=== PATIENT | male | born 1980 | race Hispanic/Latino ===

== ENCOUNTER 2019-04-25 15:43 | Emergency (ER) | payer OTHER ==
--- NOTE | 2019-04-25 17:04 | XRay Report ---
LEFT WRIST 3 VIEWS 1606 INDICATION: box fell on the arm COMPARISON: None available. FINDINGS: No fractures or dislocations are seen. 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 Signer Name: Landry Rodriguez MD Signed: 04/25/2019 5:00 PM Workstation Name: [id number]
--- NOTE | 2019-04-25 19:59 | Emergency Department Report ---
HPI - General Chief Complaint: Extremity Injury, Lower Time Seen by Provider: 04/25/19 19:48 - HPI HPI: Room 6 The patient is a 39-year-old male presenting with chief complaint left wrist pain. The patient states approximately 2-to 3 days ago heavy box fell landing on his left wrist. Patient complains of pain in the left wrist especially with movement. Patient states he does not wish to receive any narcotic medication Location: [See above] Duration: [See above] Quality: [See above] Severity: [See above] Timing: [See above] Context: [See above] Modifying factors: [See above] Associated signs and symptoms: [see above] ED Past Medical Hx - Past Medical History Previous Medical History?: No - Surgical History Additional Surgical History: kidney - Family History Family history: no significant - Social History Smoking Status: Current Every Day Smoker (1/3 pack per day) - Medications Home Medications: Home Medications Medication Instructions Recorded Confirmed Last Taken Type Ibuprofen [Motrin 800 MG tab] 800 mg PO Q8HR PRN #20 tablet 04/25/19 Unknown Rx ED Review of Systems ROS: Stated complaint: LFT WRIST WORK INJURY/PAIN Other details as noted in HPI Musculoskeletal: myalgia Physical Exam - Physical Exam Vital Signs: Vital Signs 04/25/19 15:50 Temperature 97.9 F Pulse Rate 81 Respiratory 16 Rate Blood Pressure 150/98 O2 Sat by Pulse 98 Oximetry Physical Exam: GENERAL: The patient is well-developed well-nourished male sitting on stretcher not appearing to be in acute distress. [] HEENT: Normocephalic. Atraumatic. Extraocular motions are intact. Patient has moist mucous membranes. NECK: Trachea midline CHEST/LUNGS: There is no respiratory distress noted. HEART/CARDIOVASCULAR: Regular. There is no tachycardia. 2+ left radial pulse SKIN: There is no rash. There is no edema. There is no diaphoresis. NEURO: The patient is awake, alert, and oriented. The patient is cooperative. The patient has no focal neurologic deficits. The patient has normal speech. Normal sensation to light touch of the left hand MUSCULOSKELETAL: There is tenderness to palpation of the left anatomical snuffbox ED Course Vital Signs 04/25/19 15:50 Temperature 97.9 F Pulse Rate 81 Respiratory 16 Rate Blood Pressure 150/98 O2 Sat by Pulse 98 Oximetry ED Medical Decision Making - Radiology Data Radiology results: report reviewed (left wrist x-ray), image reviewed (left wrist x-ray) interpreted by me: Left wrist x-ray-no acute fracture [facility] [address] [place] [address] XRay Report Signed Patient: FAUSTO BOTELLO MR#: [id number] : 1980 Acct:[id number] Age/Sex: 39 / M ADM Date: 04/25/19 Loc: ED Attending Dr: Ordering Physician: ED MD HECTOR Date of Service: 04/25/19 Procedure(s): XR wrist 3+V LT Accession Number(s): [id number] cc: ED MD HECTOR Fluoro Time In Minutes: LEFT WRIST 3 VIEWS 1606 INDICATION: box fell on the arm COMPARISON: None available. FINDINGS: No fractures or dislocations are seen. 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 Signer Name: Landry Rodriguez MD Signed: 04/25/2019 5:00 PM Workstation Name: [id number] Transcribed By: GJ Dictated By: Landry Rodriguez MD Electronically Authenticated By: Landry Rodriguez MD Signed Date/Time: 04/25/19 1700 DD/ 1636 TD/TT: - Differential Diagnosis scaphoid fracture, wrist contusion, wrist radius fracture Critical care attestation.: If time is entered above; I have spent that time in minutes in the direct care of this critically ill patient, excluding procedure time. ED Disposition Clinical Impression: Left wrist injury Disposition: DC-01 TO HOME OR SELFCARE Is pt being admited?: No Does the pt Need Aspirin: No Condition: Stable Instructions: Scaphoid Fracture (ED) Additional Instructions: Return to the emergency department should you develop worsening symptoms, inability to tolerate food or liquids, high fever or any other concerns Prescriptions: Ibuprofen [Motrin 800 MG tab] 800 mg PO Q8HR PRN #20 tablet PRN Reason: Pain, Moderate (4-6) Referrals: SOFIA HEATH MD [Staff Physician] - 3-5 Days (Dr. Heath is an orthopedic surgeon. Please follow-up with him further evaluation) Time of Disposition: 19:59
[2019-04-25 20:44] VITALS: BP 141/91
== END 2019-04-25 20:25 | disposition home or self-care (01) ==
LOC: ED 15:43
DX: S69.92XA Unspecified injury of left wrist, hand and finger(s), initial encounter (principal); F17.210 Nicotine dependence, cigarettes, uncomplicated; X58.XXXA Exposure to other specified factors, initial encounter; Y93.89 Activity, other specified; Y92.89 Other specified places as the place of occurrence of the external cause; Y99.8 Other external cause status